=== PATIENT | male | born 1965 | race Caucasian/White ===

== ENCOUNTER → 2022-03-14 | Outpatient (CLI) | payer OTHER | LOC: CT 08:24 | PROVIDERS: ATTEND Internal Medicine | DX: M54.30 Sciatica, unspecified side (principal) | CPT/HCPCS: 72131 ==

== ENCOUNTER → 2025-05-05 | Outpatient (REF) | payer BC, OTHER | LOC: RAD 09:36 | PROVIDERS: ATTEND Internal Medicine | DX: M25.562 Pain in left knee (principal) ==

== ENCOUNTER → 2025-05-24 | Outpatient (REF) | payer OTHER | LOC: MRI 08:38 | PROVIDERS: ATTEND Internal Medicine | DX: M95.8 Other specified acquired deformities of musculoskeletal system (principal) ==